=== PATIENT | male | born 1975 | race Caucasian/White ===

== ENCOUNTER 2021-01-02 11:11 | Emergency (ER) | payer OTHER, SELFPAY ==
--- NOTE | ~2021-01-02 | XR_ITS ---
XR hand RT min 3V 01/02/2021 11:33 Indication: Right hand pain status post fall Procedure: 3 views right hand Comparison: No prior studies for comparison. Findings: There is a fifth metacarpal neck fracture with mild volar angulation and ventral displaceme nt. There is soft tissue swelling. No fracture or traumatic malalignment there is a minimally displac ed avulsion fracture dorsal base of fifth distal phalanx. No foreign bodies. Impression: 1: Right fifth metacarpal neck fracture with mild volar angulation and ventral displacement. 2: Minimally displaced avulsion fracture dorsal base of fifth distal phalanx. Reviewed, dictated and finalized at location B. Impression: 1: Right fifth metacarpal neck fracture with mild volar angulation and ventral displacement. 2: Minimally displaced avulsion fracture dorsal base of fifth distal phalanx.
--- NOTE | 2021-01-02 11:16 | ED.UPPEXIN ---
HPI - Extremity Injury (Upper) General Chief Complaint: Extremity Injury, Upper Stated Complaint: right hand injury Time Seen by Provider: 01/02/21 11:16 Source: patient and RN notes reviewed History of Present Illness HPI narrative: Patient is a 46-year-old male who presents the urgent care with complaints of right hand pain and swelling. Patient states that last night a 2 x 12 fell approximately 10 foot onto his right hand causing some abrasions. Patient denies any use of [id number] medication for the pain or ice. Denies any other injuries. Patient is right-hand dominant. No other acute complaints. No acute distress noted. Patient aware of the plan of care. Some parts of this dictation were generated by voice recognition software and may contain typographical and/or grammatical inaccuracies. Related Data Allergies Allergy/AdvReac Type Severity Reaction Status Date / Time No Known Allergies Allergy Verified 01/02/21 11:22 Review of Systems Review of Systems: Narrative: CONSTITUTIONAL: Denies fever, chills, or sweats. EYES: Denies visual changes, redness, or discharge. ENT: Denies rhinorrhea, congestion, sore throat, or otalgia. CARDIOVASCULAR: Denies chest pain, palpitations, or edema. RESPIRATORY: Denies cough or dyspnea. GASTROINTESTINAL: Denies abdominal pain, nausea, vomiting, or diarrhea. GENITOURINARY: Denies dysuria or hematuria. SKIN: Denies rash or itching. MUSCULOSKELETAL: Reports of right hand pain and swelling NEUROLOGIC: Denies headache, numbness, or weakness. All other systems reviewed are negative, except as documented in HPI. PMFSH Comments At the time of my signature, I reviewed and agree with the nursing past medical, surgical, social, and family history. There is no relevant family history pertinent to the patient complaint. Exam Narrative: Exam Narrative: GENERAL: This is a well-nourished, well-developed patient, in no apparent distress. HEAD: normocephalic, atraumatic. EYES: PERRL. Sclera clear/white. Vision is grossly intact. EARS: External ears normal NOSE: External nose normal with no obvious nasal discharge, nares without redness, no rhinorrhea. THROAT: Mucous membranes moist NECK: Neck supple CARDIOVASCULAR: Regular rate and rhythm without murmurs, gallops, or rubs. RESPIRATORY: Clear to auscultation. Breath sounds equal bilaterally. No wheezes, rales, or rhonchi. SKIN: (2) 0.25 cm abrasions noted across the MCP of the third and fourth digits on the right hand. 0.25 cm abrasion to the DIP of the third digit of the right hand. NEURO: awake, alert, and oriented to person, place and time. There were no obvious focal neurologic abnormalities. EXTREMITIES: Moderate edema noted to the dorsal aspect of the right hand with mild erythema. Positive strong right radial pulse with capillary refill less than 2 seconds. Difficulty with making a fist due to pain. Otherwise range of motion within normal limits. Course Vital Signs Vital signs: Vital Signs Temperature 98.7 F 01/02/21 11:20 Pulse Rate 94 01/02/21 11:20 Respiratory Rate 20 01/02/21 11:20 Blood Pressure 138/82 01/02/21 11:20 Pulse Oximetry 96 01/02/21 11:20 Temperature 98.7 F 01/02/21 11:20 Pulse Rate 94 01/02/21 11:20 Respiratory Rate 20 01/02/21 11:20 Blood Pressure 138/82 01/02/21 11:20 Pulse Oximetry 96 01/02/21 11:20 Reviewed Procedures Orthopedic Splinting/Casting Injury #1: Side: right Upper Extremity Injury Location: hand OCL: volar Pre-Procedure Neuro Vascular Exam: normal Post-Procedure Neuro Vascular Exam: normal Other Orthopedic Equipment: other (Sling) Additional Comments: Short arm posterior volar splint applied to the right hand. Patient tolerated well. No complications. Neurovascular exam within normal limits pre and post procedure. Sling applied to the right arm. OCL applied by cost recovery technician. MDM - Extremity Injury (Upper) M
[2021-01-02 11:20] VITALS: BP 138/82; PULSE 94; RESP 20; TEMP 37.1; O2SAT 96
== END 2021-01-02 12:12 | disposition home or self-care (01) ==
PROVIDERS: Emergency Provider Nurse Practitioner Family
DX: S62.336A Displaced fracture of neck of fifth metacarpal bone, right hand, initial encounter for closed fracture (principal); S62.636A Displaced fracture of distal phalanx of right little finger, initial encounter for closed fracture; W20.8XXA Other cause of strike by thrown, projected or falling object, initial encounter
CPT/HCPCS: 29125; 73130; 99214; A4565; G0463